=== PATIENT | male | born 1990 | race Caucasian/White ===

== ENCOUNTER 2023-07-18 17:58 | Emergency (ER) | payer MEDICAID ==
[~2023-07-18] VITALS: Ht 167.6 cm; Wt 68.0 kg
[2023-07-18 18:50] VITALS: BP 130/92; PULSE 97; RESP 18; TEMP 99; O2SAT 98
[2023-07-18] MEDS ORDERED: CEPH-588 PO (21:08)
[2023-07-18] MEDS ORDERED: CYCL-711 PO (21:08)
[2023-07-18] MEDS ORDERED: IBUP-2213 PO (21:08)
[2023-07-18] MEDS ORDERED: SULF-59 PO (21:08)
[2023-07-18] MEDS ORDERED: IBUPROFEN 600 MG TAB PO ONE (21:10)
[2023-07-18 21:27] VITALS: BP 130/92; PULSE 97; RESP 18; TEMP 99; O2SAT 98
== END 2023-07-18 21:38 | disposition home or self-care (01) ==
LOC: MED 17:58
DX: S66.912A Strain of unspecified muscle, fascia and tendon at wrist and hand level, left hand, initial encounter (principal); R03.0 Elevated blood-pressure reading, without diagnosis of hypertension; L03.114 Cellulitis of left upper limb; R93.7 Abnormal findings on diagnostic imaging of other parts of musculoskeletal system; Z79.899 Other long term (current) drug therapy; Z79.1 Long term (current) use of non-steroidal anti-inflammatories (NSAID); Z79.2 Long term (current) use of antibiotics; V49.9XXA Car occupant (driver) (passenger) injured in unspecified traffic accident, initial encounter; Y93.89 Activity, other specified; Y92.410 Unspecified street and highway as the place of occurrence of the external cause; Y99.8 Other external cause status
CPT/HCPCS: 73110; 99283